=== PATIENT | female | born 1980 | race Caucasian/White ===

== ENCOUNTER 2017-03-10 06:33 | Day surgery (SDC) | payer MEDICARE ==
[2017-03-07 12:56] LABS: HEMATOCRIT 40.5 % (36.0-48.0); HEMOGLOBIN 14.3 g/dL (12-16); MCH 30.1 pg (26.0-34.0); MCHC 35.3 g/dL (31.0-37.0); MCV 85.3 fL (80.0-100.0); MEAN PLATELET VOLUME 10.7 fL (7.4-10.4); RBC 4.75 10x6/uL (4.00-5.40); RDW 12.6 % (11.5-14.5); WBC 7.1 10x3/uL (4.8-10.8)
[~2017-03-10] VITALS: Ht 152.4 cm; Wt 78.9 kg
[~2017-03-10 06:33] MED LIST: BUSPIRONE HCL7.5 MG PO; ELAVIL25 MG PO; PROTONIX40 MG PO
[2017-03-10 10:01] VITALS: BP 116/79; Ht 152.4 cm; Wt 78.9 kg
[2017-03-10 10:28] LABS: HCG URINE NEGATIVE (NEGATIVE)
[2017-03-10] MEDS ORDERED: HYDROCODON-ACE1 EAC7 PO (11:58)
== END 2017-03-10 18:15 | disposition home or self-care (01) ==
LOC: D.OPS 06:33 → D.PAN 10:45 → D.OPS 18:15
PROVIDERS: Anesthesiology; Surgery
DX: K80.10 Calculus of gallbladder with chronic cholecystitis without obstruction (principal); Z01.812 Encounter for preprocedural laboratory examination

== ENCOUNTER → 2017-08-25 07:34 | Outpatient (CLI) | payer MEDICARE ==
[2017-03-10 10:01] VITALS: BMI 34.0
[~2017-08-25 07:34] MED LIST changes: +HYDROCODON-ACE1 EAC7 PO
== END | disposition home or self-care (01) ==
LOC: D.CT 07:34
DX: R10.11 Right upper quadrant pain (principal)

== ENCOUNTER 2017-09-15 07:03 | Day surgery (SDC) | payer MEDICARE ==
[~2017-09-15] VITALS: Ht 152.4 cm; Wt 77.1 kg
--- NOTE | ~2017-09-15 | OP ---
PATIENT NAME: DEANNA GARCIA MEDICAL RECORD: [id number] :78 [facility] ADMISSION DATE: SURGEON: TOY CASTRO DO DATE OF OPERATION: 09/15/2017 PROCEDURE: Colonoscopy with polypectomy and biopsies. INDICATIONS FOR PROCEDURE: Altered bowel function, stomach cramps, right upper quadrant abdominal pain. SCOPE: Olympus video pediatric colonoscope. MEDICATIONS: Propofol 500 mg IV per anesthesia. WITHDRAWAL TIME: 11 minutes. ESTIMATED BLOOD LOSS: Minimal. COMPLICATIONS: None. FINDINGS: Informed consent was given. The patient was made comfortable with the above medication. After reaching an adequate level of sedation by slow IV push, the patient was placed on her left side. A digital rectal examination was performed and was normal. The endoscope was then advanced under direct visualization through the rectum to the cecum and terminal ileum. The endoscope was slowly withdrawn. Mucosa was carefully examined. There was evidence of very mild diverticulosis consisting of small mouth diverticula involving all segments of the colon. There was no evidence of diverticulitis. There were 2 polyps visualized on today's examination. They were both benign appearing and sessile and measured approximately 3-5 mm in diameter. They were both located in the sigmoid colon and removed with a hot snare in 1 piece and completely retrieved. The remainder of the colon including the terminal ileum appeared normal. Random biopsies were taken to submit for histology. Retroflexion was performed in the rectum with a normal appearing rectal wall. The endoscope was withdrawn from the patient. The patient tolerated the procedure well and there were no complications. IMPRESSION: 1. Mild diverticulosis. 2. Two sigmoid polyps removed using hot snare. PLAN AND RECOMMENDATIONS: 1. Discharge home when recovery parameters are met. 2. Follow up biopsy specimen results. 3. High fiber diet with supplementation of Metamucil or another psyllium husk fiber 1-2 tablespoons daily. 4. Dicyclomine 20 mg 1 p.o. t.i.d. as needed for loose stools or abdominal pain and cramping. 5. Recall colonoscopy will be dependent on results of polyps removed today. TRANSINT:[id number] Voice Confirmation ID: [id number] DOCUMENT ID: [id number] OPERATIVE REPORT [id number] DEANNA GARCIA TOY CASTRO DO at 5547 CC: [id number] DICTATION DATE: 09/15/17 1002 FIRE MEDIC: 09/15/17 1046 [facility] 09/15/17 [place] [id number] [place] [id number]
[2017-09-15 07:28] LABS: HEMATOCRIT 42.3 % (36.0-48.0); HEMOGLOBIN 14.6 g/dL (12-16); MCH 29.7 pg (26.0-34.0); MCHC 34.5 g/dL (31.0-37.0); MEAN PLATELET VOLUME 10.5 fL (7.4-10.4); RBC 4.92 10x6/uL (4.00-5.40); RDW 12.9 % (11.5-14.5); WBC 6.5 10x3/uL (4.8-10.8)
[2017-09-15 07:35] LABS: HCG SERUM NEGATIVE (NEGATIVE)
[2017-09-15 07:36] LABS: CALC OSMOLALITY 276 mosm/kg (275-300); CALCIUM 8.8 mg/dL (8.5-10.1); CARBON DIOXIDE 30.8 mmol/L (21.0-32.0); CHLORIDE - SERUM 103 mmol/L (98-107); CREATININE - SERUM 0.7 mg/dL (0.6-1.3); GLUCOSE 103 mg/dL (74-106); POTASSIUM - SERUM 3.9 mmol/L (3.5-5.1); SODIUM 140 mmol/L (136-145); UREA NITROGEN 7 mg/dL (7-18); eGFR NON AFRICAN AMERICAN > 90 mL/min (90-120)
[2017-09-15 08:08] VITALS: BP 121/76; Ht 152.4 cm; Wt 77.1 kg
== END 2017-09-15 11:10 | disposition home or self-care (01) ==
LOC: D.OPS 07:03
PROVIDERS: Anesthesiology
DX: K57.30 Diverticulosis of large intestine without perforation or abscess without bleeding (principal); K63.5 Polyp of colon; K52.9 Noninfective gastroenteritis and colitis, unspecified; Z01.812 Encounter for preprocedural laboratory examination

== ENCOUNTER → 2017-09-22 08:25 | Outpatient (CLI) | payer MEDICARE ==
[2017-09-15 08:08] VITALS: BMI 33.2
== END | disposition home or self-care (01) ==
LOC: D.RAD 08:25
DX: R13.10 Dysphagia, unspecified (principal); R12 Heartburn; R10.11 Right upper quadrant pain

== ENCOUNTER → 2017-11-11 09:36 | Outpatient (CLI) | payer MEDICARE ==
[2017-09-15 08:08] VITALS: BMI 33.2
--- NOTE | ~2017-11-11 | EC ---
PATIENT:DEANNA GARCIA DATE OF SERVICE: 11/11/17 SEX: F MEDICAL RECORD: [id number] DATE OF : 78 LOCATION:[facility] AGE OF PATIENT: 36 ADMISSION DATE: 11/11/17 REFERRING PHYSICIAN: INTERPRETING PHYSICIAN: VESTA BAUMAN MD ECHOCARDIOGRAM REPORT ECHO CHARGES 4 ECHO COMPLETE Date: 11/11/17 CLINICAL DIAGNOSIS: PALPATATIONS ECHOCARDIOGRAPHIC MEASUREMENTS (adult normal given) AC root (d.<3.7cm) 2.4 cm LV Septum d (<1.2 cm> 0.7 cm Valve Excursion 1.7 cm LV Septum (systole) 1.0 cm Left Atria (s.<4.0cm> 2.8 cm LVPW d(<1.2cm) 0.5 cm RV (d.<2.3cm) 2.9 cm LVPW (sytole) 0.8 cm LV diastole(<5.6CM) 5.0 cm MV E-F(>70mm/sec) cm LV systole 3.8 cm LVOT Diameter 1.8 cm MV exc.(>10mm) cm Est.ejection fraction (50-75%) % DOPPLER: LVIT cm/sec A 48 cm/sec E 67 cm/sec LA cm/sec RVSP 30.9 mmHg LVOT 75 cm/sec AOP1/2T m/s Asc. Ao 125 cm/sec RVOT 76 cm/sec RA cm/sec PA 67 cm/sec AV Gradient Peak 6.2 mmHg AV Mean 3.7 mmHg AV Area 1.3 cm MV Gradient Peak 4.2 mmHg MV Mean 1.9 mmHg MV Area cm COMMENTS: Plasma Processing Technician: Jennifer [facility] Teacher Specialist: Odalis Bauman TAPE# PACS Pericardial Effusion N DATE OF SERVICE: PROCEDURE: Transthoracic echocardiogram. FINDINGS: 1. Left ventricle appears to be hyperdynamic. There is no obvious regional wall motion abnormalities. Inflow characteristics are normal. 2. The mitral valve appears to be normal. 3. The left atrium is normal. 4. The aortic valve is normal. ECHOCARDIOGRAM REPORT [id number] DEANNA GARCIA 5. The tricuspid valve appears to be structurally normal. There is no obvious significant mitral regurgitation. RVSP appears to be normal. There is no significant pericardial effusion. IVC is shown to be of normal size and collapses with inspiration, indicating likely normal central venous pressure. CONCLUSION: This is a normal echocardiogram. TRANSINT:[id number] Voice Confirmation ID: [id number] DOCUMENT ID: [id number] VESTA BAUMAN MD at 0738 CC: [id number] DICTATION DATE: 11/12/17 0840 CUSTOMER SERVICE CASHIER: 11/12/17 0956 DEP CLI 11/11/17 [place] [address] [place] [address]
== END | disposition home or self-care (01) ==
LOC: D.ECHO 11-04 13:30
DX: R00.2 Palpitations (principal); R07.9 Chest pain, unspecified

== ENCOUNTER 2018-10-29 10:35 | Observation (INO) | payer MEDICARE ==
[2018-10-29] VITALS (12 sets, daily range): BP systolic 96–135; BP diastolic 47–82; Ht 152.4 cm; Wt 81.8 kg
[~2018-10-29] VITALS: Ht 152.4 cm; Wt 81.8 kg
[2018-10-29] MEDS ORDERED: BUSPIRONE HCL7.5 MG PO (10:42)
[2018-10-29 11:11] LABS: BASOPHILS 0.6 % (0-2); EOSINOPHILS 1.8 % (0-7); HEMATOCRIT 40.4 % (36.0-48.0); HEMOGLOBIN 14.3 g/dL (12-16); IMMATURE GRANULOCYTES 0.3 % (0-5); LYMPHOCYTES 22.6 % (15-50); MCH 29.8 pg (26.0-34.0); MCHC 35.4 g/dL (31.0-37.0); MCV 84.2 fL (80.0-100.0); MEAN PLATELET VOLUME 10.8 fL (7.4-10.4); MONOCYTES 5.8 % (2-11); NEUTROPHILS 68.9 % (40-80); PLATELET COUNT 297 10x3/uL (130-400); RDW 13.4 % (11.5-14.5); WBC 7.9 10x3/uL (4.8-10.8)
--- NOTE | 2018-10-29 11:22 | NUR ---
URINE SPEC OBTAINED, LABELED AT BS AND SENT TO LAB
[2018-10-29 11:24] LABS: ALKALINE PHOSPHATASE 52 U/L (46-116); ALT (SGPT) 36 U/L (10-68); BILIRUBIN - TOTAL 0.49 mg/dL (0.2-1.3); CALC OSMOLALITY 278 mosm/kg (275-300); CALCIUM 9.1 mg/dL (8.5-10.1); CARBON DIOXIDE 28.3 mmol/L (21.0-32.0); CHLORIDE - SERUM 105 mmol/L (98-107); CREATININE - SERUM 0.8 mg/dL (0.6-1.3); GLUCOSE 83 mg/dL (74-106); POTASSIUM - SERUM 3.6 mmol/L (3.5-5.1); PROTEIN - SERUM 7.7 g/dL (6.4-8.2); SODIUM 141 mmol/L (136-145); UREA NITROGEN 11 mg/dL (7-18); eGFR NON AFRICAN AMERICAN 85 mL/min (90-120)
[2018-10-29 11:25] LABS: AMYLASE - SERUM 46 U/L (25-115); LIPASE 122 U/L (73-393); TROPONIN-I < 0.017 ng/mL (0.000-0.060)
[2018-10-29 13:09] LABS: APPEARANCE CLEAR (CLEAR); BILIRUBIN NEGATIVE (NEGATIVE); COLOR YELLOW (YELLOW); GLUCOSE NEGATIVE (NEGATIVE); KETONE SMALL mg/dL (NEGATIVE); NITRITE NEGATIVE (NEGATIVE); PROTEIN NEGATIVE (NEGATIVE); UROBILINOGEN NORMAL (NORMAL)
--- NOTE | 2018-10-29 13:42 | NUR ---
PATIENT TO BE ADMITTED TO ROOM 2226. REPORT CALLED TO SIMONE STRAUSS
--- NOTE | 2018-10-29 14:58 | NUR ---
CONSENTS SIGNED FOR PROCEDURE. DENIES FURTHER QUESTIONS.
--- NOTE | 2018-10-29 15:27 | NUR ---
RESTING IN BED. DENIES NEEDS. WILL CONTINUE TO MONITOR.
--- NOTE | 2018-10-29 17:29 | NUR ---
SURGERY CALLED TO PREOP PATIENT. LET KNOW NO PREOP MEDS IN. STATED THEY WILL GIVE IN SURGERY.
--- NOTE | 2018-10-29 17:30 | NUR ---
PATIENT TAKEN FOR PROCEDURE.
--- NOTE | 2018-10-29 19:42 | NUR ---
RECEIVED PT FROM PACU. SLIGHTLY DROWSY. C/O ABD PAIN. CRYING AT TIMES THEN FALLS ASLEEP. V/S STABLE. FAMILY AT BEDSIDE. RESP SHALLOW. LAP SITES X3 NOTED TO ABD WITH BANDAIDS C/D/I. LR INFUSING IN LT AC. HOB ELEVATED X2. CL IN REACH.
--- NOTE | 2018-10-29 22:40 | NUR ---
ASSISTED UP TO BSC TO VOID AND THEN BACK TO BED. DOING WELL. V/S STABLE. FATHER AT BEDSIDE. CL IN REACH.
[2018-10-30] VITALS: BP 116/59
[2018-10-30 04:00] VITALS: BP 101/53
--- NOTE | 2018-10-30 04:28 | NUR ---
ASSISTED UP TO BSC TO VOID. MEDICATED WITH NORCO FOR C/O ABD PAIN RATING 6.
[2018-10-30 06:31] LABS: BASOPHILS 0.2 % (0-2); EOSINOPHILS 0.2 % (0-7); HEMATOCRIT 38.4 % (36.0-48.0); IMMATURE GRANULOCYTES 0.3 % (0-5); LYMPHOCYTES 12.6 % (15-50); MCH 29.3 pg (26.0-34.0); MCHC 33.9 g/dL (31.0-37.0); MEAN PLATELET VOLUME 11.4 fL (7.4-10.4); MONOCYTES 8.1 % (2-11); NEUTROPHILS 78.6 % (40-80); PLATELET COUNT 276 10x3/uL (130-400); RBC 4.43 10x6/uL (4.00-5.40); RDW 13.8 % (11.5-14.5)
[2018-10-30 06:46] LABS: MCV 86.7 fL (80.0-100.0); WBC 11.1 10x3/uL (4.8-10.8)
[2018-10-30 07:07] LABS: ALBUMIN 3.1 g/dL (3.4-5.0); BILIRUBIN - TOTAL 0.47 mg/dL (0.2-1.3); CALCIUM 8.1 mg/dL (8.5-10.1); CARBON DIOXIDE 24.9 mmol/L (21.0-32.0); CREATININE - SERUM 0.9 mg/dL (0.6-1.3); MAGNESIUM - SERUM 2.1 mg/dL (1.8-2.4); PHOSPHOROUS 3.7 mg/dL (2.5-4.9); PROTEIN - SERUM 5.8 g/dL (6.4-8.2)
[2018-10-30 07:09] LABS: ANION GAP 14.3 mmol/L (8-16); POTASSIUM - SERUM 4.2 mmol/L (3.5-5.1)
[2018-10-30 07:50] VITALS: BP 113/62
--- NOTE | 2018-10-30 08:20 | NUR ---
ALERT AND ORIENTED. LUNGS CLEAR BILATERALLY IN ALL RANGEL. HEART SOUNDS S1 AND S2 HEARD IN ALL RANGEL. BOWEL SOUNDS ACTIVE X 4. LAP SITES X 3 TO ABD WITH BANDAIDS C/D/I. SKIN OTHERWISE INTACT WITHOUT REDNESS. IV TO LEFT AC PATENT WITHOUT REDNESS. DENIES PAIN. DENIES NEEDS. WILL CONTINUE TO MONITOR.
[2018-10-30] MEDS ORDERED: HYDROCODON-ACE1 EAC7 PO (11:18)
[2018-10-30] MEDS ORDERED: COLACE100 MG PO (11:19)
--- NOTE | 2018-10-30 12:25 | NUR ---
DISCHARGE EDUCATION PROVIDED BOTH WRITTEN AND VERBAL. VERBALIZED UNDERSTANDING. DENIES FURTHER QUESTIONS. FAMILY AT BEDSIDE DENIES FURTHER QUESTIONS. IV REMOVED FROM LEFT AC WITH TIP INTACT. PATIENT DISCHARGED HOME WITH PARENTS WITH ALL BELONGINGS.
--- NOTE | 2018-10-30 12:55 | NUR ---
PATIENT DISCHARGED HOME WITH FAMILY WITH ALL BELONGINGS.
--- NOTE | 2018-11-03 17:33 | OP ---
PATIENT NAME: DEANNA GARCIA MEDICAL RECORD: [id number] :78 LOCATION:D[id number] ADMISSION DATE:10/29/18 SURGEON: CARLITO BARRERA MD DATE OF OPERATION: 10/29/2018 PREOPERATIVE DIAGNOSIS: Acute appendicitis. POSTOPERATIVE DIAGNOSIS: Probable acute appendicitis. PROCEDURE: Laparoscopic appendectomy. SURGEON: Carlito Barrera MD MATCH UP WORKER: None. BLOOD LOSS: Minimal. ANESTHESIA: General. COMPLICATIONS: None. The risks, possible complications and alternatives to the procedure were explained to the patient. She elects to proceed. The discussion specifically included, but was not limited to, bleeding requiring emergency reoperation, infection, possibility that the appendix would be normal and in that event I would still remove the normal appendix in order to avoid diagnostic confusion in the future should the patient have a recurrence or persistence of abdominal pain. Some operative findings were interesting. The patient did have some small cysts on both ovaries. The patient's uterus was enlarged and was stuck up to the anterior abdominal wall. There were some holes that were about the size of a suction cannula that were in the anterior pelvis. I do not think they involved the bladder, but they certainly were abnormal. There was also some gelatinous material on the uterus and the fallopian tubes that probably represent endometriosis. OPERATIVE COURSE: The patient was conveyed to the operating room urgently on 10/29/2018. General anesthesia was induced by the anesthesia staff. The abdomen was sterilely prepped and draped. A skin incision was accomplished in the umbilicus. Some preperitoneal adipose tissue was identified within an incarcerated umbilical hernia. I excised this preperitoneal adipose tissue and inserted a 12-mm trocar. CO2 insufflation was begun. Utilizing television camera, I placed two more trocars, these were 5-mm trocars. One was present in the right lower quadrant and one was in the left lower quadrant. During insertion of the trocars, there was no apparent injury to the bowels in the intraperitoneal or retroperitoneal structures. An abdominal survey was undertaken. The appendix was, I think, mildly acutely inflamed. There were some retroperitoneal attachments over the appendix. These were divided with the laparoscopic EnSeal device. The appendix was mobilized. The mesoappendix was taken down with the laparoscopic EnSeal device. I then stapled across the tip of the cecum with an Endo-EDDY type staple utilizing a blue load. OPERATIVE REPORT [id number] DEANNA GARCIA I examined the small bowel and there was no impingement of the ileum as it entered the ascending colon. The appendix was placed within a bag retrieval device and was withdrawn through the umbilical fascial defect. A 12-mm trocar was placed. The abdomen reinsufflated. I irrigated and aspirated the right lower quadrant as well as down in the pelvis. All trocars were removed and the abdomen desufflated. The umbilical hernia defect was closed with a single horizontal mattress 0 Vicryl suture. The umbilical skin was tacked down to the underlying hernia repair with a 3-0 Vicryl suture. The umbilical skin was approximated with interrupted 4-0 Vicryl Rapide sutures. The other 2 skin incisions were closed with interrupted intracuticular 3-0 Vicryls. Benzoin and Steri-Strips were applied. The patient was then extubated and conveyed to post-anesthesia care unit where she was in stable condition. I am going to plan on letting her go home tonight or in the morning. She will be dismissed home on a narcotic analgesic as well as Colace. TRANSINT:[id number] Voice Confirmation ID: [id number] DOCUMENT ID: [id number] 10/31/2018 Edited for clinic administrator errors, dmm. CARLITO BARRERA MD at 1733 CC: [id number] DICTATION DATE: 10/29/181939 AIR TRAFFIC COORDINATOR: 10/30/18 0021 DIS IN 10/30/18 [facility] [address] [place] [address]
--- NOTE | 2018-11-26 16:24 | DS ---
PATIENT:DEANNA GARCIA :78 MEDICAL RECORD: [id number] DISCHARGE SUMMARY ADMISSION DATE: 10/29/18 DISCHARGE DATE: 10/30/18 PRINCIPAL DIAGNOSES: 1. Acute appendicitis with localized peritonitis. 2. Sigmoid diverticulosis. 3. Fat-containing umbilical hernia. 4. History of C-sections times 2. 5. Cholecystectomy. 6. Gastroesophageal reflux. 7. Anxiety. HOSPITAL COURSE: The patient underwent a CT scan while in the Emergency Room. The CT scan revealed the appendix was normal in caliber; however, a very early appendicitis could not be excluded. The patient underwent laparoscopic appendectomy. The pathology on the surgical specimen revealed acute appendicitis, which was segmental. The patient's pain was controlled postoperatively. She was dismissed home on a narcotic analgesic. She is to follow up with me in the office in 2-3 weeks. TRANSINT:[id number] Voice Confirmation ID: [id number] DOCUMENT ID: [id number] ENEDELIA BARRERA MD at 1624 CC: MAR[facility] [id number] DICTATION DATE: 11/25/18 1049 PAINTING TRADES WORKER: 11/25/18 1427 DIS IN 10/30/18 [facility] [address] [place] [address]
== END 2018-10-30 12:55 | disposition home or self-care (01) ==
LOC: D.ER 10:35 → D.MS 13:26 → OBSVTIME 19:06 → D.MS 10-30 12:55
PROVIDERS: Family Medicine; ADMIT Surgery; ATTEND Surgery
DX: K35.80 Unspecified acute appendicitis (principal); F17.200 Nicotine dependence, unspecified, uncomplicated

== ENCOUNTER → 2020-06-22 13:08 | Outpatient (CLI) | payer MEDICARE ==
[2018-10-29 16:24] VITALS: BMI 35.2
[~2020-06-22 13:08] MED LIST changes: +COLACE100 MG PO
== END | disposition home or self-care (01) ==
LOC: D.HCCECHO 13:08
PROVIDERS: ATTEND Internal Medicine Cardiovascular Disease
DX: I10 Essential (primary) hypertension (principal)